=== PATIENT | male | born 1980 | race Caucasian/White ===

== ENCOUNTER 2018-12-03 10:27 | Emergency (ER) | payer MEDICAID ==
[~2018-12-03] VITALS: Ht 175.3 cm; Wt 65.9 kg
[2018-12-03 10:41] VITALS: BP 145/80
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
[2018-12-03] MEDS ORDERED: HYDROcodone/APAP 5/325 TABLET PO ONE (11:00)
[2018-12-03] MEDS ORDERED: HYDROcodone/APAP 5/325 TABLET ONE (11:07)
--- NOTE | 2018-12-03 12:45 | NUR ---
Patient given discharge instructions and they have confirmed that they understand the instructions. Patient ambulatory with steady gait. Pt left d/c paperwork, prescription, and all personal belongings. Pt refusing to have vital signs rechecked. Pt states, "I need to get the fuck out of here."
== END 2018-12-03 12:48 | disposition home or self-care (01) ==
LOC: ED 12:13
DX: S02.652A Fracture of angle of left mandible, initial encounter for closed fracture (principal); S02.2XXA Fracture of nasal bones, initial encounter for closed fracture; S00.83XA Contusion of other part of head, initial encounter; F15.10 Other stimulant abuse, uncomplicated; F17.200 Nicotine dependence, unspecified, uncomplicated; Z72.89 Other problems related to lifestyle; Z75.9 Unspecified problem related to medical facilities and other health care; Z63.8 Other specified problems related to primary support group; Y04.0XXA Assault by unarmed brawl or fight, initial encounter; Y93.89 Activity, other specified; Y92.89 Other specified places as the place of occurrence of the external cause; Y99.8 Other external cause status
CPT/HCPCS: 70450; 70486; 99284